=== PATIENT | female | born 1985 | race Caucasian/White ===

== ENCOUNTER 2016-04-15 18:07 | Outpatient (CLI) | payer BC ==
[~2016-04-15] VITALS: Ht 165.1 cm; Wt 79.0 kg
[~2016-04-15 18:07] MED LIST: BCPILLS PO; INSPMPHMLG
[2016-04-15 19:01] VITALS: Ht 165.1 cm; Wt 79.0 kg
[2016-04-15] MEDS ORDERED: PRENTAB26 PO (19:17)
[2016-04-15] MEDS ORDERED: SYN112 PO (19:17)
[2016-04-15] MEDS ORDERED: ASPI81TA28 PO (19:18)
== END 2016-04-15 19:42 | disposition home or self-care (01) ==
LOC: C.LD 18:07 → C.OPB 18:07
PROVIDERS: ATTEND Obstetrics & Gynecology
DX: O26.892 Other specified pregnancy related conditions, second trimester (principal); R10.9 Unspecified abdominal pain; Z3A.20 20 weeks gestation of pregnancy

== ENCOUNTER 2016-06-14 17:20 | Outpatient (CLI) | payer BC ==
[~2016-06-14 17:20] MED LIST changes: +ASPI81TA28 PO; -BCPILLS PO; +PRENTAB26 PO; +SYN112 PO
== END 2016-06-14 18:35 | disposition home or self-care (01) ==
LOC: C.LD 17:20 → C.OPB 17:20
PROVIDERS: ATTEND Obstetrics & Gynecology
DX: Z34.83 Encounter for supervision of other normal pregnancy, third trimester (principal)

== ENCOUNTER 2016-07-21 15:34 | Emergency (ER) | payer BC ==
[~2016-07-21] VITALS: Ht 167.6 cm; Wt 97.0 kg
[2016-07-21 15:55] VITALS: TEMP 36.5; Ht 167.6 cm; Wt 97.0 kg
[2016-07-21 16:57] LABS: BASO % 0.2 %; BASO ABS # 0.03 K/uL (0-0.2); COMPLETE YES; EOS % 0.7 %; IG% 0.8 %; LYMPH % 16.3 %; LYMPH ABS # 2.24 K/uL (1.2-3.4); MEAN CELL VOLUME 88.3 fL (80-100); MEAN CORPUSCULAR HEMOGLOBIN 29.8 pg (25-34); MEAN CORPUSCULAR HGB CONC 33.8 g/dl (32-36); MEAN PLATELET VOLUME 9.1 fL (7.4-10.4); MONO % 10.3 %; NEUT % 71.7 %; PLATELET COUNT 236 K/uL (130-400); RED BLOOD COUNT 4.19 M/uL (4.2-5.4); WHITE BLOOD COUNT 13.74 K/uL (4.8-10.8)
[2016-07-21 17:10] LABS: INR 0.9 (0.9-1.1); PROTHROMBIN TIME (PATIENT) 9.5 SECONDS (9.0-12.0)
[2016-07-21 17:18] LABS: CALCIUM 8.3 mg/dl (8.5-10.1); CREATININE 0.54 mg/dl (0.60-1.20); POTASSIUM 4.2 mmol/L (3.5-5.1)
[2016-07-21 17:20] LABS: ALB/GLOB RATIO 0.7 (0.9-2)
--- NOTE | 2016-07-21 18:04 | DIAGNOSTIC IMAGING REPORT ---
BILATERAL LOWER EXTREMITY VENOUS DOPPLER CLINICAL HISTORY: RIGHT > left LE pain/swelling COMPARISON STUDY: No previous studies for comparison. TECHNIQUE: Sonography of the deep venous system of the bilateral lower extremities was performed. Compression and augmentation were evaluated. FINDINGS: The bilateral common femoral, superficial femoral and popliteal veins were compressible. Augmentation was normal. Flow was shown within the deep calf vessels. IMPRESSION: No evidence of deep venous thrombus within the bilateral lower extremities. Electronically signed by: Lenny Galeano M.D. 07/21/2016 6:02 PM Dictated Date/Time: 07/21/2016 6:01 PM
[2016-07-21 18:45] LABS: URINE APPEARANCE CLEAR (CLEAR); URINE BILIRUBIN NEG (NEG); URINE COLOR YELLOW; URINE NITRITE NEG (NEG); URINE PH 7.5 (4.5-7.5); URINE SPECIFIC GRAVITY 1.013 (1.000-1.030); UROBILINOGEN NEG (NEG); ZZUR CULT IF INDIC CLEAN CATCH NO
[2016-07-21 18:48] LABS: MANUAL MICROSCOPIC REQUIRED? NO; REVIEW REQ? NO
--- NOTE | 2016-07-21 19:49 | EMERGENCY ROOM VISIT NOTE ---
History First contact with patient: 16:00 Chief Complaint: SWELLING TO EXTREMITY Stated Complaint: SEVERE, BAD SHOOTING PAIN IN ANKLE/CALF History of Present Illness The patient is a 31 year old female who presents to the Emergency Department by private vehicle for evaluation of pain to the RIGHT lower extremity and bilateral lower externally swelling. She reports that she is 35 weeks . She has had lower leg swelling for the past several weeks of . She reports that over the last few days she has had swelling greater in the RIGHT versus left. She developed pain today which was concerning to her. She describes the pain as "burning". She rates her current discomfort as a 6/10. She is tried nothing for her symptoms pain. She denies any low back pain or numbness/tingling into the extremity. She denies any chest pain, palpitations, shortness of breath, fevers, chills, hemoptysis, hematuria, or dysuria. The patient does report that her blood sugars have been very high. She is a type I diabetic and reports that she is had difficulty maintaining blood glucose levels less than 150. Review of Systems A complete 10-point Review of Systems was discussed with the patient, with pertinent positives and negatives listed in the History of Present Illness. All remaining Review of Systems questions can be considered negative unless otherwise specified. Past Medical/Surgical History Surgical Problems: (1) No significant past surgical history Social History Smoking Status: Never Smoker Smokeless Tobacco Use: No Alcohol Use: occasionally Marital Status: single Housing Status: lives with family Occupation Status: employed Current/Historical Medications Scheduled Aspirin (Aspirin Ec), 81 MG PO DAILY Insulin Human Lispro (Insulin Humalog Pump ), 1 EA N/A UD Levothyroxine Sodium (Synthroid), 1 TAB PO DIRECTED Multivit/Min/Iron/Fol Ac/Pren ( Vitamin), 1 TAB PO DAILY Allergies Coded Allergies: Penicillins (Unverified Allergy, Unknown, ANAPHYLAXIS, 07/21/16) Physical Exam Vital Signs Date Time Temp Pulse Resp B/P Pulse Ox O2 Delivery O2 Flow Rate FiO2 07/21/16 20:07 75 18 127/96 96 07/21/16 19:26 81 18 121/64 98 Room Air 07/21/16 17:19 72 18 126/77 98 Room Air 07/21/16 17:19 72 18 126/77 98 Room Air 07/21/16 15:55 36.5 86 18 165/101 96 Pain Rating (0-10): 6 Physical Exam VITAL SIGNS - Vital signs and nursing notes were reviewed. GENERAL - 31-year-old female appearing her stated age and in noticeable discomfort throughout the exam. NECK - FROM of the cervical spine. ABDOMEN - Abdominal contour flat without pulsations or visible masses. BS normoactive all four quadrants. No tenderness, palpable masses, hepatosplenomegaly, or ascites noted. MUSCULOSKELETAL - ROM of the lumbar spine region was assessed as full. Pt was laying on the exam table. Pt made fluent movements when asked to change position. No step-off deformities were palpated down the thoracolumbar spines. Moderate Tenderness to Palpation experienced at the level of the LEFT sided lumbar paraspinal muscle distribution. No reproducible tenderness to palpation across the iliac spine. NEUROLOGIC - REFLEXES: +3/4 patellar reflexes B/L. SENSORY: Spinothalamic tract was found to be intact with ability to discriminate sharp versus dull sensation at the level of hip joint down do the great toe. No sensory defects of the dorsal column were appreciated utilizing light touch for evaluation. CEREBELLAR: Pt able to perform rapid alternating movements of the feet. EXTREMITIES - Range of Motion - No tremors, ticks, or fasciculations of the lower extremities noticed during inspection. Pt had +5/5 strength appreciated bilaterally in the lower extremities against examiner's resistance. VASCULAR - Capillary refill of the great toe was brisk. No mottling or blanching of the extremities present. +3/5 dorsalis pedis pulses palpated bilaterally. Medical Decision & Procedures ER Provider Diagnostic Interpretation: Radiological imaging and reports were reviewed by myself. Radiologist's Interpretation as follows: BILATERAL LOWER EXTREMITY VENOUS DOPPLER CLINICAL HISTORY: RIGHT > left LE pain/swelling COMPARISON STUDY: No previous studies for comparison. TECHNIQUE: Sonography of the deep venous system of the bilateral lower extremities was performed. Compression and augmentation were evaluated. FINDINGS: The bilateral common femoral, superficial femoral and popliteal veins were compressible. Augmentation was normal. Flow was shown within the deep calf vessels. IMPRESSION: No evidence of deep venous thrombus within the bilateral lower extremities. Laboratory Results 07/21/16 16:40 Red Blood Count 4.19, Mean Corpuscular Volume 88.3, Mean Corpuscular Hemoglobin 29.8, Mean Corpuscular Hemoglobin Concent 33.8, Mean Platelet Volume 9.1, Neutrophils (%) (Auto) 71.7, Lymphocytes (%) (Auto) 16.3, Monocytes (%) (Auto) 10.3, Eosinophils (%) (Auto) 0.7, Basophils (%) (Auto) 0.2, Neutrophils # (Auto ) 9.84, Lymphocytes # (Auto) 2.24, Monocytes # (Auto) 1.42, Eosinophils # (Auto ) 0.10, Basophils # (Auto) 0.03 07/21/16 16:40 Test 07/21/16 16:40 07/21/16 18:15 White Blood Count 13.74 K/uL (4.8-10.8) Red Blood Count 4.19 M/uL (4.2-5.4) Hemoglobin 12.5 g/dL (12.0-16.0) Hematocrit 37.0 % (37-47) Mean Corpuscular Volume 88.3 fL (80-100) Mean Corpuscular Hemoglobin 29.8 pg (25-34) Mean Corpuscular Hemoglobin Concent 33.8 g/dl (32-36) Platelet Count 236 K/uL (130-400) Mean Platelet Volume 9.1 fL (7.4-10.4) Neutrophils (%) (Auto) 71.7 % Lymphocytes (%) (Auto) 16.3 % Monocytes (%) (Auto) 10.3 % Eosinophils (%) (Auto) 0.7 % Basophils (%) (Auto) 0.2 % Neutrophils # (Auto) 9.84 K/uL (1.4-6.5) Lymphocytes # (Auto) 2.24 K/uL (1.2-3.4) Monocytes # (Auto) 1.42 K/uL (0.11-0.59) Eosinophils # (Auto) 0.10 K/uL (0-0.5) Basophils # (Auto) 0.03 K/uL (0-0.2) RDW Standard Deviation 41.2 fL (36.4-46.3) RDW Coefficient of Variation 12.8 % (11.5-14.5) Immature Granulocyte % (Auto) 0.8 % Immature Granulocyte # (Auto) 0.11 K/uL (0.00-0.02) Prothrombin Time 9.5 SECONDS (9.0-12.0) Prothromb Time International Ratio 0.9 (0.9-1.1) Activated Partial Thromboplast Time 26.0 SECONDS (21.0-31.0) Partial Thromboplastin Ratio 1.0 Anion Gap 3.0 mmol/L (3-11) Est Creatinine Clear Calc Drug Dose 177.2 ml/min Estimated GFR () 145.7 Estimated GFR (Non- 125.7 BUN/Creatinine Ratio 18.0 (10-20) Calcium Level 8.3 mg/dl (8.5-10.1) Total Bilirubin 0.2 mg/dl (0.2-1) Aspartate Amino Transf (AST/SGOT) 14 U/L (15-37) Alanine Aminotransferase (ALT/SGPT) 17 U/L (12-78) Alkaline Phosphatase 73 U/L (45-117) Total Protein 6.3 gm/dl (6.4-8.2) Albumin 2.5 gm/dl (3.4-5.0) Globulin 3.8 gm/dl (2.5-4.0) Albumin/Globulin Ratio 0.7 (0.9-2) Urine Color YELLOW Urine Appearance CLEAR (CLEAR) Urine pH 7.5 (4.5-7.5) Urine Specific [place] 1.013 (1.000-1.030) Urine Protein NEG (NEG) Urine Glucose (UA) TRACE (NEG) Urine Ketones NEG (NEG) Urine Occult Blood NEG (NEG) Urine Nitrite NEG (NEG) Urine Bilirubin NEG (NEG) Urine Urobilinogen NEG (NEG) Urine Leukocyte Esterase SMALL (NEG) Urine WBC (Auto) 1-5 /hpf (0-5) Urine RBC (Auto) 0-4 /hpf (0-4) Urine Hyaline Casts (Auto) 1-5 /lpf (0-5) Urine Epithelial Cells (Auto) 10-20 /lpf (0-5) Urine Bacteria (Auto) NEG (NEG) ED Course Patient was seen and evaluated by myself. Labs were drawn, saline lock in place. The patient was hydrated with 1000 mL normal saline bolus. Ultrasound of bilateral lower extremities was obtained. Laboratory results demonstrated mild leukocytosis. The patient is not anemic. There are no significant electrolyte abnormalities. Urinalysis does not stress infection or elevated protein. Ultrasound results as above. Laboratory results and imaging studies were reviewed with the patient who acknowledges understanding. The patient was encouraged to follow-up with her [employer] from today's visit. She was educated on worrisome symptoms for return visit to the emergency department. Patient discharged home in good condition. Medical Decision Given the patient's presentation and stated complaint, I did elect to perform the above-mentioned workup. The patient presents today with worsening RIGHT versus left leg swelling. Ultrasound ruled out DVT. Her labs are otherwise unremarkable. The patient is likely expansion burning secondary to edema alone. She will follow closely with her [employer] from today's visit. She will return for changing/worsening symptoms. Patient discharged home in good condition. In the evaluation and treatment of this patient, the following differential diagnoses were considered: DVT, cellulitis, dermatitis, phlebitis, amongst others. Impression Primary Impression: Swelling of right extremity Departure Information Dispostion Home / Self-Care Condition GOOD Referrals Sacha Dumont M.D.([facility]) (PCP) Patient Instructions My [facility] Additional Instructions You've been seen in the emergency department today for bilateral lower extremity edema. Continue to elevate the extremities for comfort. Follow-up with your [employer] from today's visit. Return for any changing or worsening symptoms.
[2016-07-21 20:07] VITALS: BP 127/96; PULSE 75; O2SAT 96
== END 2016-07-21 20:08 | disposition home or self-care (01) ==
LOC: C.EDB 15:35 → C.EDA 20:08
DX: M79.89 Other specified soft tissue disorders (principal); O26.893 Other specified pregnancy related conditions, third trimester; O24.013 Pre-existing type 1 diabetes mellitus, in pregnancy, third trimester; E10.9 Type 1 diabetes mellitus without complications; Z3A.35 35 weeks gestation of pregnancy; Z79.82 Long term (current) use of aspirin; Z79.899 Other long term (current) drug therapy

== ENCOUNTER → 2016-12-14 | Outpatient (CLI) | payer BC ==
[2016-12-14 13:12] LABS: HEMATOCRIT 39.2 % (37-47); MEAN CELL VOLUME 86.7 fL (80-100); MEAN CORPUSCULAR HGB CONC 33.4 g/dl (32-36); PLATELET COUNT 293 K/uL (130-400); RED BLOOD COUNT 4.52 M/uL (4.2-5.4); WHITE BLOOD COUNT 5.68 K/uL (4.8-10.8)
[2016-12-14 13:33] LABS: PREG INTERNAL NEGATIVE QC NEG CLEAR BACKGROUND; PREG INTERNAL POSITIVE QC POS CONTROL LINE
== END | disposition home or self-care (01) ==
LOC: C.LAB1850 12:08
PROVIDERS: ATTEND Physician Assistant
DX: N93.9 Abnormal uterine and vaginal bleeding, unspecified (principal)